=== PATIENT | male | born 1950 | race Hispanic/Latino ===

== ENCOUNTER → 2023-08-21 | Outpatient (CLI) | payer OTHER ==
[2023-08-21 16:23] LABS: CREATININE 1.3 mg/dL (0.5-1.5)
== END ==
LOC: LAB 15:05
PROVIDERS: ATTEND Surgery
DX: K92.1 Melena (principal)
CPT/HCPCS: 36415; 82565; 84520

== ENCOUNTER → 2023-09-14 | Outpatient (CLI) | payer OTHER ==
[~2023-09-14] MED LIST: GADOTERATE MEGLUMINE 10 MMOL/20 ML VIAL IV ONE
== END | disposition home or self-care (01) ==
LOC: RAH 14:33
PROVIDERS: ATTEND Surgery
DX: K57.30 Diverticulosis of large intestine without perforation or abscess without bleeding (principal); R97.20 Elevated prostate specific antigen [PSA]; K92.1 Melena; N40.0 Benign prostatic hyperplasia without lower urinary tract symptoms
CPT/HCPCS: 72197; A9575

== ENCOUNTER → 2024-08-31 | Outpatient (CLI) | payer OTHER ==
--- NOTE | 2024-09-02 08:33 | HMCIMG ---
MR PELVIS W/WO CON HISTORY: Increased PSA level COMPARISON: 09/14/2023 TECHNIQUE: MRI of the pelvis was performed utilizing multiple pulse sequences in axial, coronal and sagittal planes. Patient was given 20 cc of Clariscan through intravenous route. FINDINGS: No abnormal signal intensity is seen of the visualized bony structure. Prostate gland is enlarged measuring 4.8 x 4.4 cm. There are multiple hyperintense nodules seen throughout the prostate gland with the largest measuring 2 cm. Prostate cancer cannot be excluded. Tissue correlation would be helpful. Seminal vesicles appears to be grossly intact. Prostate capsule appears to be intact. Bladder is poorly distended with apparent wall thickening. Bladder wall measures 8 mm. Perirectal fascial plane is intact. No definite pelvic adenopathy is seen. There is diverticulosis. No ascites is seen. Degenerative changes are seen. IMPRESSION: 1. Enlarged prostate gland with internal nodules with prostate neoplasm not excluded. No evidence of pelvic adenopathy is seen otherwise. Overall, no interval change is seen.
== END | disposition home or self-care (01) ==
LOC: RAH 10:38
PROVIDERS: ATTEND Surgery
DX: N40.0 Benign prostatic hyperplasia without lower urinary tract symptoms (principal); R97.20 Elevated prostate specific antigen [PSA]
CPT/HCPCS: 72197; A9575